=== PATIENT | female | born 1940 | race Caucasian/White ===

== ENCOUNTER 2017-12-19 17:59 | Emergency (ER) | payer OTHER ==
[2017-12-19] MEDS: ASPIRIN 81 MG CHEW TAB PO ONE (18:07)
[2017-12-19 18:36] LABS: BASOPHILS % 0.7 (0.0-1.5); EOSINOPHILS % 2.9 % (0.0-6.8); MEAN CORPUSCULAR HEMOGLOBIN 29.5 pg (28.0-34.0); MEAN CORPUSCULAR VOLUME 89.4 fl (80.0-100.0); MONOCYTES % 6.7 % (0.0-11.0)
[2017-12-19 19:06] LABS: eGFR (Non-African) > 60
--- NOTE | 2017-12-19 19:15 | ED Physician Documentation ---
Chest Pain - HISTORIAN Historian: patient - HPI Stated Complaint: chest pain Chief Complaint: Chest Pain - PAST HX HI risk factors: hyperlipidemia Neuro deficit: other (fibromyalgia, anxiety) - VITAL SIGNS Vital Signs: Vital Signs Temp Pulse Resp BP Pulse Ox 71 20 164/85 96 12/19/17 19:06 12/19/17 17:59 12/19/17 17:59 12/19/17 19:06 <MEGAN NANCE - Last Filed: 12/19/17 21:02> - HPI Additional Information: 77-year-old white female who stated she is been having some chest pain for approximately one week. Patient describes the chest pain as being a pressure feeling in the substernal left chest area. The did not seem to be any precipitating cause. Being anxious tends to make the pain worse. No other modifying factors has been noted. Patient stated she does have problems with anxiety believes that this may be resulting in her chest pain. Patient does have antianxiety medications at home but is not taking any. Patient is trying to taper off of her sertraline at this time. Patient denies any coronary artery disease, hypertension, diabetes, or hyperlipidemia. Patient is however taking a statin medication for her cholesterol. Patient denies any associated shortness of breath diaphoresis. Onset: days ago Timing: still present Last known Well Date: 12/12/17 Last Known Well Time: 08:00 Last known Well Code/Unknown Code: Unknown Severity: moderate Quality: pressure Chest Pain Radiation: no radiation Chest Pain Signs/Symptoms: denies: nausea, vomiting, diaphoresis Worsened By: denies: deep breaths, exertion, movement, change in position Relieved By: rest - ROS CONST: no problems MS/LYMPH: denies: neck pain, calf pain, ankle swelling SKIN/ENDO: denies: rash - SOCIAL HX Smoking History: less than 1 pack/day Alcohol Use: none Drug Use: none - FAMILY HX Family HX: none - VITAL SIGNS Vital Signs: Vital Signs Temp Pulse Resp BP Pulse Ox 66 15 140/77 95 12/19/17 19:39 12/19/17 19:39 12/19/17 19:39 12/19/17 19:39 - REVIEWED ASSESSMENTS Nursing Assessment Reviewed: Yes Vitals Reviewed: Yes <Romel Alcantara - Last Filed: 12/20/17 16:36> - PAST HX Allergies/Adverse Reactions: Allergies Allergy/AdvReac Type Severity Reaction Status Date / Time No Known Allergies Allergy Verified 12/19/17 18:18 Home Medications: Ambulatory Orders Medication Instructions Recorded RX: Pravastatin Sodium [Pravachol] 1 tab PO DAILY 12/19/17 Progress - Progress Progress: 1899 Assumed care of patient Patient reported to nursing that she has been weaning off her Effexor. Reviewed discharge instructions with patient, verbalized understanding. - EKG/XRAY/CT EKG: rhythm (SR, no acute changes, Rate 70) <MEGAN NANCE - Last Filed: 12/19/17 21:02> ED Results Lab/Radiology - Lab Results Lab Results: Lab Results 12/19/17 12/19/17 18:15 18:15 WBC 7.50 K/ul K/ul (4.00-12.00) RBC 4.81 M/ul M/ul (3.90-5.20) Hgb 14.2 g/dL g/dL (12.0-16.0) Hct 43.0 % % (34.5-46.5) MCV 89.4 fl fl (80.0-100.0) MCH 29.5 pg pg (28.0-34.0) MCHC 33.0 g/dL g/dL (30.0-36.0) RDW 13.5 % % (11.3-14.3) Plt Count 356 K/mm3 K/mm3 (130-400) Neut % (Auto) 52.5 % % (39.0-79.0) Lymph % (Auto) 35.8 % % (16.0-50.0) [place] % (Auto) 6.7 % % (0.0-11.0) Eos % (Auto) 2.9 % % (0.0-6.8) Baso % (Auto) 0.7 (0.0-1.5) Neut # (Auto) 4.0 # k/uL # k/uL (1.4-7.7) Lymph # (Auto) 2.7 # k/uL # k/uL (0.6-4.0) [place] # (Auto) 0.5 # k/uL # k/uL (0.0-0.9) Eos # (Auto) 0.2 # k/uL # k/uL (0.0-0.6) Baso # (Auto) 0.0 # k/uL # k/uL (0.0-0.5) Reactive Lymphs % 1.5 % % (0.0-5.0) Reactive Lymphs # 0.1 # k/uL # k/uL (0.0-0.8) Sodium 136 mmol/L mmol/L (136-145) Potassium 3.9 mmol/L mmol/L (3.5-5.1) Chloride 101 mmol/L mmol/L (98-107) Carbon Dioxide 28 mmol/L mmol/L (22-30) BUN 9 mg/dL mg/dL (7-17) Creatinine 0.70 mg/dL mg/dL (0.52-1.04) Estimated Creat Clear 67 Est GFR ( Amer) > 60 (60 - ) Est GFR (Non-Af Amer) > 60 (60 - ) Glucose 83 mg/dL mg/dL (74-106) Calcium 9.3 mg/dL mg/dL (8.4-10.2) Total Bilirubin < 0.1 mg/dL L mg/dL (0.2-1.3) AST 17 U/L U/L (15-46) ALT 17 U/L U/L (13-69) Alkaline Phosphatase 83 U/L U/L (38-126) Creatine Kinase 71 U/L U/L (30-135) Total Protein 8.1 g/dL g/dL (6.3-8.2) Albumin 4.7 g/dL g/dL (3.5-5.0) - Radiology Radiology Impressions: The of 2 views chest Clinical history: Chest pain Findings: The heart size is normal. Pulmonary vasculature is normal. No pleural effusion, pneumothorax or alveolar consolidation. Impression: Negative Electronically signed on Dec 19, 2017 7:11:13 PM CDT by: Ray Guzman - Orders Orders: ED Orders Category Date Time Status Continuous EKG monitoring Q30M Care 12/19/17 18:06 Active Continuous Pulse Oximetry Q30M Care 12/19/17 18:[address] IV Lock 1T Care 12/19/17 18:06 Active CHEST 2VIEW [RAD] Routine Exams 12/19/17 Ordered CBC/PLATELET/DIFF Routine Lab 12/19/17 18:15 Completed CMP Routine Lab 12/19/17 18:15 Completed CREATINE KINASE Routine Lab 12/19/17 18:15 Completed TROPONIN I (cTnI) Stat Lab 12/19/17 18:15 Received Aspirin Med 12/19/17 18:06 Discontinued 324 mg PO NOW ONE Oxygen Daily Oxygen 12/19/17 18:15 Ordered EKG WITH COMPARISON Stat Ther 12/19/17 18:06 Ordered <MEGAN NANCE - Last Filed: 12/19/17 21:02> - Lab Results Lab Results: Lab Results 12/19/17 12/19/17 12/19/17 18:15 18:15 18:15 WBC 7.50 K/ul K/ul (4.00-12.00) RBC 4.81 M/ul M/ul (3.90-5.20) Hgb 14.2 g/dL g/dL (12.0-16.0) Hct 43.0 % % (34.5-46.5) MCV 89.4 fl fl (80.0-100.0) MCH 29.5 pg pg (28.0-34.0) MCHC 33.0 g/dL g/dL (30.0-36.0) RDW 13.5 % % (11.3-14.3) Plt Count 356 K/mm3 K/mm3 (130-400) Neut % (Auto) 52.5 % % (39.0-79.0) Lymph % (Auto) 35.8 % % (16.0-50.0) [place] % (Auto) 6.7 % % (0.0-11.0) Eos % (Auto) 2.9 % % (0.0-6.8) Baso % (Auto) 0.7 (0.0-1.5) Neut # (Auto) 4.0 # k/uL # k/uL (1.4-7.7) Lymph # (Auto) 2.7 # k/uL # k/uL (0.6-4.0) [place] # (Auto) 0.5 # k/uL # k/uL (0.0-0.9) Eos # (Auto) 0.2 # k/uL # k/uL (0.0-0.6) Baso # (Auto) 0.0 # k/uL # k/uL (0.0-0.5) Reactive Lymphs % 1.5 % % (0.0-5.0) Reactive Lymphs # 0.1 # k/uL # k/uL (0.0-0.8) Sodium 136 mmol/L mmol/L (136-145) Potassium 3.9 mmol/L mmol/L (3.5-5.1) Chloride 101 mmol/L mmol/L (98-107) Carbon Dioxide 28 mmol/L mmol/L (22-30) BUN 9 mg/dL mg/dL (7-17) Creatinine 0.70 mg/dL mg/dL (0.52-1.04) Estimated Creat Clear 67 Est GFR ( Amer) > 60 (60 - ) Est GFR (Non-Af Amer) > 60 (60 - ) Glucose 83 mg/dL mg/dL (74-106) Calcium 9.3 mg/dL mg/dL (8.4-10.2) Total Bilirubin < 0.1 mg/dL L mg/dL (0.2-1.3) AST 17 U/L U/L (15-46) ALT 17 U/L U/L (13-69) Alkaline Phosphatase 83 U/L U/L (38-126) Creatine Kinase 71 U/L U/L (30-135) Troponin I < 0.03 ng/mL L ng/mL (0.03-0.06) Total Protein 8.1 g/dL g/dL (6.3-8.2) Albumin 4.7 g/dL g/dL (3.5-5.0) - Orders Orders: ED Orders Category Date Time Status Continuous EKG monitoring Q30M Care 12/19/17 18:06 Active Continuous Pulse Oximetry Q30M Care 12/19/17 18:[address] IV Lock 1T Care 12/19/17 18:06 Active CHEST 2VIEW [RAD] Routine Exams 12/19/17 Completed CBC/PLATELET/DIFF Routine Lab 12/19/17 18:15 Completed CMP Routine Lab 12/19/17 18:15 Completed CREATINE KINASE Routine Lab 12/19/17 18:15 Completed TROPONIN I (cTnI) Stat Lab 12/19/17 18:15 Completed Aspirin Med 12/19/17 18:06 Discontinued 324 mg PO NOW ONE Oxygen Daily Oxygen 12/19/17 18:15 Ordered EKG WITH COMPARISON Stat Ther 12/19/17 18:06 Ordered <AlcantaraRomel - Last Filed: 12/20/17 16:36> Chest Pain Physical Exam - EXAM General Appearance: alert, mild distress, anxious EENT: eye inspection normal, ENT inspection normal, pharynx normal, no signs of dehydration, FARSHAD, no nystagmus, TM's nml Neck: nml inspection, no carotid bruit Respiratory: no resp. distress, chest non-tender, nml breath sounds CVS: reg. rate & rhythm, no murmur, no gallop, no friction rub, pulses full, pulses equal Abdomen: soft, no organomegaly, normal bowel sounds, no abdominal bruit, no distension Skin: normal color, warm/dry, NR, INT, Neuro: mood/affect nml, cognition normal <QuintonRomel - Last Filed: 12/20/17 16:36> Discharge Decision to Admit: NO Decision Time: 19:35 <MEGAN NANCE - Last Filed: 12/19/17 21:02> <Romel Alcantara - Last Filed: 12/20/17 16:36> Clincal Impression: Anxiety, Non-cardiac chest pain Referrals: Alejandro Yarbrough DO [Primary Care Provider] - 2 Days Additional Instructions: Restart your Effexor daily. Do not wean yourself down any further. Use your xanax as needed more often Follow up with Dr Yarbrough next week. Condition: Stable Disposition: 01 HOME, SELF-CARE
--- NOTE | 2017-12-19 19:29 | Diagnostic Imaging Report ---
KAZ GAYLE [facility] [address] [facility].[address] [address] Report Submission Date: Dec 19, 2017 7:11:13 PM CDT Patient Study Name: MIRA BARCENAS Date: Dec 19, 2017 6:34:56 PM CDT Modality Type: DX Gender: F Description: CHEST : 42 Institution: [facility] Physician: KAZ GAYLE The of 2 views chest Clinical history: Chest pain Findings: The heart size is normal. Pulmonary vasculature is normal. No pleural effusion, pneumothorax or alveolar consolidation. Impression: Negative Electronically signed on Dec 19, 2017 7:11:13 PM CDT by: Ray HUTTON
[2017-12-19 19:41] VITALS: BP 140/77
== END 2017-12-19 19:39 | disposition home or self-care (01) ==
LOC: ED 17:59
DX: F41.9 Anxiety disorder, unspecified (principal); R07.89 Other chest pain
CPT/HCPCS: 71046; 80053; 82550; 84484; 85025; S1016

== ENCOUNTER 2018-02-15 13:53 | Emergency (ER) | payer OTHER ==
[2018-02-15 14:56] LABS: MEAN CORPUSCULAR HEMOGLOBIN 29.1 pg (28.0-34.0)
[2018-02-15 14:57] LABS: BASOPHILS % 0.5 (0.0-1.5); MONOCYTES % 7.5 % (0.0-11.0); NEUTROPHILS # 3.4 # k/uL (1.4-7.7)
--- NOTE | 2018-02-15 15:06 | Diagnostic Imaging Report ---
PEMA SHEA [facility] [address] [facility] [address] [place] [id number] Report Submission Date: Feb 15, 2018 3:04:10 PM CDT Patient Study Name: MIRA BARCENAS Date: Feb 15, 2018 2:44:34 PM CDT Modality Type: DX Gender: F Description: CHEST : 42 Institution: [facility] Physician: PEMA SHEA Chest, 2 view History: 77/F SOB PT STATES SOB x1 WK, COUGH x1 DAY, HX OF SMOKING Findings: The heart size is normal. The lungs are clear but hyperinflated. There is atherosclerosis of the aorta. There is no pleural effusion or pneumothorax identified. The osseous structures are normal. Impression: 1. No acute pulmonary disease. 2. Lung hyperinflation. Electronically signed on Feb 15, 2018 3:04:10 PM CDT by: Kosta HUTTON
[2018-02-15 15:07] LABS: eGFR (Non-African) > 60
--- NOTE | 2018-02-15 15:37 | ED Physician Documentation ---
Dyspnea - HPI Stated Complaint: short of breath Chief Complaint: Dyspnea Additional Information: Patient with a past medical history of COPD, fibromyalgia and anxiety presents to ED with a 2 day history of dyspnea on exertion and chest pressure. Onset: days ago (4) Duration: continues in ED, intermittent Severity: mild Exacerbated By: exertion Associated Symptoms: productive cough, other (chest pressure) - ROS CONST: weakness EYES/ENT: denies: problems with vision GI/: denies: abdominal pain, vomiting, nausea NEURO/PSYCH: denies: headache MS/SKIN/LYMPH: muscle aches - PAST HX Lung Disease: COPD Cardiac Disease: none PE Risk Factors: none Surgeries/Procedures: other (several ortho surgeries) Other History: other (anxiety, fibromyalgia) Allergies/Adverse Reactions: Allergies Allergy/AdvReac Type Severity Reaction Status Date / Time codeine Allergy Verified 02/15/18 15:35 Home Medications: Ambulatory Orders Medication Instructions Recorded Pravastatin Sodium [Pravachol] 40 mg PO DAILY 12/19/17 Albuterol Sulfate [Proair HFA] 2 inh IH QID #1 hfa.aer.ad 02/15/18 Alprazolam [Xanax] 0.25 mg PO 02/15/18 Alprazolam [Xanax] 0.25 mg PO 02/15/18 Aspirin [Elizabeth] 81 mg PO DAILY 02/15/18 Cyclobenzaprine HCl [Flexeril] 10 mg PO 02/15/18 Methylprednisolone [Medrol] 4 mg PO DIRECTED #1 tab.ds.pk 02/15/18 Tramadol HCl [Ultram] 50 mg PO QID 02/15/18 Venlafaxine HCl [Venlafaxine HCl 75 mg PO DAILY 02/15/18 ER] - SOCIAL HX Smoking History: cigarettes, less than 1 pack/day Alcohol Use: none Drug Use: none - FAMILY HX Family History: other (copd/empysema) - VITAL SIGNS Vital Signs: Vital Signs Temp Pulse Resp BP Pulse Ox 98.1 F 68 16 114/67 97 02/15/18 14:13 02/15/18 14:13 02/15/18 14:13 02/15/18 14:13 02/15/18 14:13 - REVIEWED ASSESSMENTS Nursing Assessment Reviewed: Yes Vitals Reviewed: Yes Progress - EKG/XRAY/CT EKG: NSR ([address] elevation) ED Results Lab/Radiology - Lab Results Lab Results: Lab Results 02/15/18 02/15/18 02/15/18 14:40 14:40 14:40 WBC 6.20 K/ul K/ul (4.00-12.00) RBC 4.18 M/ul M/ul (3.90-5.20) Hgb 12.2 g/dL g/dL (12.0-16.0) Hct 36.8 % % (34.5-46.5) MCV 88.0 fl fl (80.0-100.0) MCH 29.1 pg pg (28.0-34.0) MCHC 29.1 g/dL L g/dL (30.0-36.0) RDW 13.7 % % (11.3-14.3) Plt Count 275 K/mm3 K/mm3 (130-400) Neut % (Auto) 54.4 % % (39.0-79.0) Lymph % (Auto) 34.6 % % (16.0-50.0) [place] % (Auto) 7.5 % % (0.0-11.0) Eos % (Auto) 3.0 % % (0.0-6.8) Baso % (Auto) 0.5 (0.0-1.5) Neut # (Auto) 3.4 # k/uL # k/uL (1.4-7.7) Lymph # (Auto) 2.2 # k/uL # k/uL (0.6-4.0) [place] # (Auto) 0.5 # k/uL # k/uL (0.0-0.9) Eos # (Auto) 0.2 # k/uL # k/uL (0.0-0.6) Baso # (Auto) 0.0 # k/uL # k/uL (0.0-0.5) Sodium 141 mmol/L mmol/L (136-145) Potassium 4.0 mmol/L mmol/L (3.5-5.1) Chloride 102 mmol/L mmol/L (98-107) Carbon Dioxide 29 mmol/L mmol/L (22-30) BUN 8 mg/dL mg/dL (7-17) Creatinine 0.60 mg/dL mg/dL (0.52-1.04) Est GFR ( Amer) > 60 (60 - ) Est GFR (Non-Af Amer) > 60 (60 - ) Glucose 74 mg/dL mg/dL (74-106) Calcium 8.8 mg/dL mg/dL (8.4-10.2) Total Bilirubin 0.2 mg/dL mg/dL (0.2-1.3) AST 25 U/L U/L (15-46) ALT 26 U/L U/L (13-69) Alkaline Phosphatase 67 U/L U/L (38-126) Troponin I < 0.03 ng/mL L ng/mL (0.03-0.06) NT-Pro-B Natriuret Pep 158.9 pg/mL pg/mL (15.0-450.0) Total Protein 6.9 g/dL g/dL (6.3-8.2) Albumin 3.9 g/dL g/dL (3.5-5.0) - Radiology Radiology Impressions: Chest, 2 view History: 77/F SOB PT STATES SOB x1 WK, COUGH x1 DAY, HX OF SMOKING Findings: The heart size is normal. The lungs are clear but hyperinflated. There is atherosclerosis of the aorta. There is no pleural effusion or pneumothorax identified. The osseous structures are normal. Impression: 1. No acute pulmonary disease. 2. Lung hyperinflation. Electronically signed on Feb 15, 2018 3:04:10 PM CDT by: Kosta Moore - Orders Orders: ED Orders Category Date Time Status Place IV Lock 1T Care 02/15/18 14:18 Active CHEST 2VIEW [RAD] Stat Exams 02/15/18 Completed CBC/PLATELET/DIFF Routine Lab 02/15/18 14:40 Completed CMP Routine Lab 02/15/18 14:40 Completed NT-proBNP Stat Lab 02/15/18 14:40 Completed TROPONIN I (cTnI) Stat Lab 02/15/18 14:40 Completed Ipratropium/Albuterol Sulfate [Duoneb] Med 02/15/18 15:33 Discontinued 3 ml NEB NOW ONE methylPREDNISolone SOD SUCC [Solu-MEDROL] 125 mg Med 02/15/18 15:34 Discontinued 0.9 % Sodium Chloride [Sodium Chloride] 100 ml IV NOW EKG WITH COMPARISON Stat Ther 02/15/18 Ordered Dyspnea Physical Exam - EXAM General Appearance: no acute distress, alert EENT: FARSHAD Neck: No: lymphadenopathy Respiratory: no resp. distress, wheezes (scattered bilaterally) CVS: reg. rate & rhythm, no murmur Abdomen: non-tender, no distention. No: tenderness Rectal: deferred Skin: color nml, no rash Extremities: non-tender, no edema Neuro/Psych: oriented x3 Discharge Clincal Impression: COPD exacerbation Prescriptions: Albuterol Sulfate [Proair HFA] 2 inh IH QID #1 hfa.aer.ad Methylprednisolone [Medrol] 4 mg PO DIRECTED #1 tab.ds.pk Referrals: Alejandro Yarbrough DO [Primary Care Provider] - 2 Days Comments: EKG, troponin, BNP negative. WBC wnl. Cxr negative. Patient symptoms likely from COPD and fibromyalgia. Discharged on Medrol dose pack and Albuterol MDI PRN Condition: Stable Disposition: 01 HOME, SELF-CARE Decision to Admit: NO Date of Decison to Admit: 02/15/18 Decision Time: 17:06
[2018-02-15] MEDS: IPRATROPIUM/ALBUTEROL SULFATE 3 ML AMPUL.NEB NEB ONE (16:02)
[2018-02-15] MEDS ORDERED: methylPREDNISolone SOD SUCC 125 MG/2 ML VIAL IVP ONE (16:03)
[2018-02-15] MEDS: methylPREDNISolone SOD SUCC 125 MG/2 ML VIAL ONE (16:03)
[2018-02-15 17:10] VITALS: BP 131/61
== END 2018-02-15 17:18 | disposition home or self-care (01) ==
LOC: ED 13:53
DX: J44.1 Chronic obstructive pulmonary disease with (acute) exacerbation (principal)
CPT/HCPCS: 71046; 80053; 83880; 84484; 85025; 93005; J2930; 94640; 96374; S1016

== ENCOUNTER 2018-10-14 16:06 | Outpatient (CLI) | payer OTHER ==
[2018-10-14 16:46] LABS: BASOPHILS % 0.5 % (0.0-1.5); NEUTROPHILS # 4.1 # k/uL (1.4-7.7)
[2018-10-14 17:19] LABS: eGFR (Non-African) > 60
--- NOTE | 2018-10-14 17:57 | Diagnostic Imaging Report ---
KAZ GAYLE [facility] [address] [facility] [address] [address] Report Submission Date: Oct 14, 2018 5:22:15 PM CDT Patient Study Name: MIRA BARCENAS Date: Oct 14, 2018 4:29:59 PM CDT Modality Type: DX Gender: F Description: CHEST 2VIEW : 42 Institution: [facility] Physician: KAZ GAYLE Chest two views History: Near syncope and chest pain Findings: The lungs are mildly hyperinflated without infiltrate, pleural effusion, or pneumothorax. Aortic atherosclerosis and lumbar fusion hardware are observed. Heart size and pulmonary vascularity are normal. Impression: Aortic atherosclerosis and mild hyperinflation. Electronically signed on Oct 14, 2018 5:22:15 PM CDT by: Will HUTTON
== END 2018-10-14 16:08 ==
LOC: LAB 16:06 → SUPCPDRO 16:06 → LAB 16:08
PROVIDERS: ATTEND Family Medicine
DX: R55 Syncope and collapse (principal); R07.9 Chest pain, unspecified; R53.83 Other fatigue
CPT/HCPCS: 36415; 71046; 80053; 84439; 84443; 84481; 84484; 85025